=== PATIENT | female | born 1985 | race Caucasian/White ===

== ENCOUNTER → 2019-11-01 | Outpatient (CLI) | payer BC ==
[~2019-11-01] MED LIST: IOHEXOL 240 MG/ML 50ML VIAL. ONE; IOHEXOL 240 MG/ML 50ML VIAL. PO ONE; IOHEXOL 300 MG/ML 75 ML VIAL. IV ONE
--- NOTE | 2019-11-01 12:40 | RAD ---
EXAM: CT Abdomen and Pelvis with IV contrast CLINICAL HISTORY: Diarrhea for 2 years. COMPARISON: none TECHNIQUE: Helical CT of the abdomen and pelvis was performed following the administration of IV contrast. Axial, coronal and sagittal reformatted images were generated. ---PQRS compliance statement - One or more of the following individualized dose reduction techniques were utilized for this study: 1. Automated exposure control 2. Adjustment of the mA and/or kV according to patient size 3. Use of iterative reconstruction technique--- FINDINGS: Lower chest: Lung bases are clear. Abdomen and pelvis: Liver and biliary system: Subcentimeter hypodense left hepatic lobe lesion is too small to accurately characterize. Gallbladder is normal. No biliary ductal dilatation. Spleen: Unremarkable Pancreas: Unremarkable Adrenal glands: Unremarkable Kidneys: Symmetric nephrograms. No focal renal lesion. No hydronephrosis. No hydroureter. Lymph nodes/retroperitoneum: No abdominal or pelvic lymphadenopathy. Vessels: Aorta is normal in caliber. Bowel/Peritoneal cavity: Moderate to large volume colonic stool content is seen. No small or large bowel dilatation. No evidence for bowel obstruction. Appendix is not convincingly is seen (likely candidate series 2 image [id number]) although no significant right lower quadrant inflammatory changes are noted. No abdominal or pelvic ascites. Endometrial prominence is likely physiologic. Abdominal wall: Unremarkable Bladder: Bladder is unremarkable. Bones: No aggressive osseous lesion is seen. IMPRESSION: 1. Moderate to large volume colonic stool content is seen throughout the colon. No significant colonic wall thickening or pericolonic infiltration is identified to suggest associated colitis. 2. Although the appendix is not convincingly identified no significant right lower quadrant inflammatory changes are seen. Electronically signed by: Ashish Avilez MD (11/01/2019 12:37 PM) [id number]
== END | disposition home or self-care (01) ==
LOC: CT 09:47
PROVIDERS: ATTEND Internal Medicine Gastroenterology
DX: R10.31 Right lower quadrant pain (principal); R19.7 Diarrhea, unspecified
CPT/HCPCS: 74177; Q9967

== ENCOUNTER → 2020-02-05 | Outpatient (CLI) | payer BC ==
--- NOTE | 2020-02-05 15:15 | RAD ---
EXAM: SMALL BOWEL FOLLOW-THROUGH. HISTORY: 34-year-old woman with right lower quadrant abdominal pain and diarrhea with intermittent constipation, symptoms worsening over the past 2 years.. COMPARISON: None. FINDINGS: A food mixer assembler image was obtained. Barium contrast material was administered orally and followed in its course through the stomach, small bowel and proximal colon with plain radiographs. 0 fluoroscopic images were obtained. Fluoroscopy time 0 seconds. The food mixer assembler image demonstrates a nonobstructive bowel gas pattern. There are no distended small bowel loops. No strictures are seen. The small bowel fold pattern is unremarkable. Transit time was normal at 40 minutes (normal <2 hours.) IMPRESSION: 1. Normal small bowel series with a low normal transit time of 40 minutes. Electronically signed by: Haley Davis MD (02/05/2020 3:12 PM) [id number]
== END | disposition home or self-care (01) ==
LOC: RAD 07:58
PROVIDERS: ATTEND Internal Medicine Gastroenterology
DX: R10.31 Right lower quadrant pain (principal)
CPT/HCPCS: 74250